=== PATIENT | female | born 1965 | race Native Hawaiian/Other Pacific Islander ===

== ENCOUNTER 2016-06-04 13:29 | Emergency (ER) | payer BC ==
[~2016-06-04] VITALS: Ht 149.9 cm; Wt 49.9 kg
[2016-06-04 13:51] LABS: BASOPHILS % (AUTO) 0.4 % (0.0-2.0); DIFF TOTAL % 100 %; EOSINOPHILS # (AUTO) 0.5 /CMM (0.0-0.7); EOSINOPHILS % (AUTO) 6.8 % (0.0-6.0); HEMATOCRIT 37 % (33-45); HEMOGLOBIN 12.4 g/dL (11.5-14.8); LYMPHOCYTES # (AUTO) 2.7 /CMM (0.8-4.8); LYMPHOCYTES % (AUTO) 40.7 % (20.0-44.0); MEAN CORPUSCULAR HEMOGLOBIN 31 PG (26.0-33.0); MEAN CORPUSCULAR HGB CONC 34 g/dl (31.0-36.0); MEAN CORPUSCULAR VOLUME 91 fL (82-100); MONOCYTES # (AUTO) 0.3 /CMM (0.1-1.30); MONOCYTES % (AUTO) 4.1 % (2.0-12.0); NEUTROPHILS # (AUTO) 3.2 /CMM (1.8-8.9); PLATELET COUNT (AUTO) 266 /CMM (150-450); RED BLOOD CELL COUNT(AUTO) 4.04 MIL/uL (4.0-5.2); WHITE BLOOD COUNT (AUTO) 6.7 K/uL (4.3-11.0)
[2016-06-04 14:07] LABS: TROPONIN I < 0.017 ng/mL (0.00-0.056)
[2016-06-04 14:09] LABS: ALANINE AMINOTRANSFERASE 25 U/L (12-78); ALBUMIN 3.6 g/dL (3.4-5.0); ANION GAP 11 (5-14); ASPARTATE AMINOTRANSFERASE 19 U/L (15-37); BILIRUBIN,DIRECT 0.1 mg/dL (0.0-0.2); BILIRUBIN,TOTAL 0.2 mg/dL (0.2-1.0); CALCIUM, SERUM 8.5 mg/dL (8.5-10.1); CARBON DIOXIDE 27 mmol/L (21-32); CHLORIDE 106 mmol/L (98-107); CREATININE 0.8 mg/dL (0.6-1.3); GFR 76 mL/min (>60); GLUCOSE 103 mg/dL (74-106); INDIRECT BILIRUBIN 0.1 mg/dL (0.0-1.1); POTASSIUM 3.4 mmol/L (3.5-5.1); SODIUM SERUM 141 mmol/L (136-145); TOTAL PROTEIN, SERUM 7.1 g/dL (6.4-8.2); UREA NITROGEN, BLOOD 16 mg/dL (7-18)
[2016-06-04 14:11] LABS: INR 0.92 (0.87-1.13); PROTHROMBIN TIME 9.9 SECS (9.5-12.7)
[2016-06-04] MEDS ORDERED: ASPIRIN EC 81 MG TABLET.DR PO ONE (14:59)
[2016-06-04] MEDS ORDERED: ASPIRIN 81 MG TAB.CHEW PO ONE (15:00)
[2016-06-04] MEDS ORDERED: ASPIRIN 81 MG TAB.CHEW ONE (15:12)
[2016-06-04] MEDS ORDERED: NITROGLYCERIN 0.4 MG/TAB BOTTLE SL ONE (15:30)
[2016-06-04] MEDS ORDERED: NITROGLYCERIN 0.4 MG/TAB BOTTLE ONE (15:36)
[2016-06-04] MEDS ORDERED: ATEN25TA PO (16:05)
[2016-06-04 17:24] VITALS: BP 120/77
== END 2016-06-04 17:25 | disposition left against medical advice (07) ==
LOC: ER 13:31
DX: R07.89 Other chest pain (principal); E03.9 Hypothyroidism, unspecified; F17.210 Nicotine dependence, cigarettes, uncomplicated
CPT/HCPCS: 36415; 71010-TC; 80048-TC; 80076-TC; 84443-TC; 84484-TC; 85025-TC; 85730-TC; A4606; Z7610